=== PATIENT | female | born 1950 | race Caucasian/White ===

== ENCOUNTER 2017-03-10 11:02 | Inpatient (IN) | payer OTHER, MEDICARE ==
[2017-03-10] MEDS ORDERED: ALPRAZolam 0.25 MG Tab PO PRN (12:50)
[2017-03-10] MEDS: Acetaminophen/HYDROcodone 325-5 MG Tab PO PRN ×2 (13:57→20:55)
[2017-03-10] MEDS: rOPINIRole 2 MG Tab PO SCH ×3 (13:57→20:53)
[2017-03-10] MEDS: Dextran 70/Hypromellose/PF Ophth Soln 0.9 ML UD EYEBOTH SCH (20:53)
[2017-03-10] MEDS: hydrOXYzine HCl 25 MG Tab PO SCH (20:54)
[2017-03-10] MEDS: Calcium Carbonate/Vitamin D3 1250 MG-200 Unit Tab PO SCH (20:54)
[2017-03-10] MEDS: Formoterol/Mometasone 100-5 MCG 8.8 GM Inhaler IH SCH (20:54)
[2017-03-10] MEDS: Simvastatin 20 MG Tab PO SCH (20:55)
[2017-03-10] MEDS: Cyclobenzaprine 10 MG Tab PO SCH (20:55)
[2017-03-11] MEDS: Omeprazole 20 MG Cap.CR PO SCH ×2 (05:56→06:17)
[2017-03-11] MEDS: Formoterol/Mometasone 100-5 MCG 8.8 GM Inhaler IH SCH ×3 (05:56→21:05)
[2017-03-11] MEDS: Polyethylene Glycol 3350 Powder 17 GM Packet PO SCH (08:00)
[2017-03-11] MEDS: Cyclobenzaprine 10 MG Tab PO SCH ×3 (08:00→21:03)
[2017-03-11] MEDS: Citalopram 20 MG Tab PO SCH (08:00)
[2017-03-11] MEDS: hydrOXYzine HCl 25 MG Tab PO SCH ×3 (08:00→21:04)
[2017-03-11] MEDS: Calcium Carbonate/Vitamin D3 1250 MG-200 Unit Tab PO SCH ×2 (08:00→21:03)
[2017-03-11] MEDS ORDERED: TROSPIUM 60 MG PO SCH (08:00)
[2017-03-11] MEDS: Cholecalciferol (Vitamin D3) 1,000 Unit Tab PO SCH (08:00)
[2017-03-11] MEDS: rOPINIRole 2 MG Tab PO SCH ×3 (08:00→21:03)
[2017-03-11] MEDS: Aspirin 325 MG Tab.EC PO SCH (08:00)
[2017-03-11] MEDS: Magnesium Oxide 400 MG Tab PO SCH (08:00)
[2017-03-11] MEDS: Dextran 70/Hypromellose/PF Ophth Soln 0.9 ML UD EYEBOTH SCH ×2 (08:01→21:03)
[2017-03-11] MEDS: Acetaminophen/HYDROcodone 325-5 MG Tab PO PRN ×2 (08:03→21:04)
[2017-03-11] MEDS: Ferrous Sulfate 325 MG Tab PO SCH (08:03)
[2017-03-11] MEDS: Ondansetron 4 MG Tab.DIS PO PRN (08:03)
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
[2017-03-11] MEDS ORDERED: Magnesium Hydroxide 400 MG/5 ML Susp 30 ML Cup PO ONE (11:05)
[2017-03-11] MEDS: SANCTURA PO SCH (16:17)
[2017-03-11] MEDS: Simvastatin 20 MG Tab PO SCH (21:03)
[2017-03-12] MEDS: Formoterol/Mometasone 100-5 MCG 8.8 GM Inhaler IH SCH ×2 (06:03→20:49)
[2017-03-12] MEDS: Omeprazole 20 MG Cap.CR PO SCH (06:03)
[2017-03-12] MEDS: Aspirin 325 MG Tab.EC PO SCH (08:06)
[2017-03-12] MEDS: Calcium Carbonate/Vitamin D3 1250 MG-200 Unit Tab PO SCH ×2 (08:06→20:49)
[2017-03-12] MEDS: hydrOXYzine HCl 25 MG Tab PO SCH ×3 (08:06→20:49)
[2017-03-12] MEDS: Magnesium Oxide 400 MG Tab PO SCH (08:06)
[2017-03-12] MEDS: Citalopram 20 MG Tab PO SCH (08:06)
[2017-03-12] MEDS: rOPINIRole 2 MG Tab PO SCH ×3 (08:06→20:49)
[2017-03-12] MEDS: Cyclobenzaprine 10 MG Tab PO SCH ×3 (08:06→20:49)
[2017-03-12] MEDS: Cholecalciferol (Vitamin D3) 1,000 Unit Tab PO SCH (08:06)
[2017-03-12] MEDS: SANCTURA PO SCH (08:08)
[2017-03-12] MEDS: Polyethylene Glycol 3350 Powder 17 GM Packet PO SCH (08:08)
[2017-03-12] MEDS: Dextran 70/Hypromellose/PF Ophth Soln 0.9 ML UD EYEBOTH SCH ×2 (08:08→20:50)
[2017-03-12] MEDS ORDERED: Bisacodyl 10 MG Supp RECTAL ONE (09:38)
[2017-03-12] MEDS: Acetaminophen/HYDROcodone 325-5 MG Tab PO PRN ×2 (10:04→20:49)
[2017-03-12] MEDS ORDERED: Lactulose Soln 10 GM/15 ML 30 ML UD Cup PO PRN (12:05)
[2017-03-12] MEDS: Simvastatin 20 MG Tab PO SCH (20:49)
[2017-03-12] MEDS: Acetaminophen 325 MG Tab PO PRN (22:46)
[2017-03-13] MEDS: Acetaminophen/HYDROcodone 325-5 MG Tab PO PRN ×2 (04:56→20:30)
[2017-03-13] MEDS: Omeprazole 20 MG Cap.CR PO SCH (07:02)
[2017-03-13] MEDS: Formoterol/Mometasone 100-5 MCG 8.8 GM Inhaler IH SCH ×2 (07:03→20:30)
[2017-03-13] MEDS: Citalopram 20 MG Tab PO SCH (08:30)
[2017-03-13] MEDS: Cholecalciferol (Vitamin D3) 1,000 Unit Tab PO SCH (08:30)
[2017-03-13] MEDS: hydrOXYzine HCl 25 MG Tab PO SCH ×3 (08:30→20:30)
[2017-03-13] MEDS: Magnesium Oxide 400 MG Tab PO SCH (08:30)
[2017-03-13] MEDS: Aspirin 325 MG Tab.EC PO SCH (08:30)
[2017-03-13] MEDS: Cyclobenzaprine 10 MG Tab PO SCH ×3 (08:30→20:29)
[2017-03-13] MEDS: Calcium Carbonate/Vitamin D3 1250 MG-200 Unit Tab PO SCH ×2 (08:30→20:29)
[2017-03-13] MEDS: rOPINIRole 2 MG Tab PO SCH ×3 (08:30→20:34)
[2017-03-13] MEDS: Polyethylene Glycol 3350 Powder 17 GM Packet PO SCH (08:30)
[2017-03-13] MEDS: Dextran 70/Hypromellose/PF Ophth Soln 0.9 ML UD EYEBOTH SCH ×2 (08:31→20:30)
[2017-03-13] MEDS: SANCTURA PO SCH (08:31)
[2017-03-13] MEDS: Ferrous Sulfate 325 MG Tab PO SCH (08:35)
[2017-03-13] MEDS ORDERED: Albuterol 0.083% 2.5 MG/3 ML Neb Soln NEB ONE (11:45)
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
[2017-03-13] MEDS: Simvastatin 20 MG Tab PO SCH (20:29)
[2017-03-13] MEDS: Albuterol 0.083% 2.5 MG/3 ML Neb Soln INH PRN (20:31)
[2017-03-14] MEDS: Formoterol/Mometasone 100-5 MCG 8.8 GM Inhaler IH SCH ×2 (06:11→19:59)
[2017-03-14] MEDS: Acetaminophen/HYDROcodone 325-5 MG Tab PO PRN ×2 (06:11→20:02)
[2017-03-14] MEDS: Omeprazole 20 MG Cap.CR PO SCH (06:12)
[2017-03-14] MEDS: Polyethylene Glycol 3350 Powder 17 GM Packet PO SCH (07:58)
[2017-03-14] MEDS: Magnesium Oxide 400 MG Tab PO SCH (07:58)
[2017-03-14] MEDS: Citalopram 20 MG Tab PO SCH (07:58)
[2017-03-14] MEDS: hydrOXYzine HCl 25 MG Tab PO SCH ×3 (07:58→19:57)
[2017-03-14] MEDS: Dextran 70/Hypromellose/PF Ophth Soln 0.9 ML UD EYEBOTH SCH ×2 (07:58→19:59)
[2017-03-14] MEDS: Cyclobenzaprine 10 MG Tab PO SCH ×3 (07:58→19:58)
[2017-03-14] MEDS: Calcium Carbonate/Vitamin D3 1250 MG-200 Unit Tab PO SCH ×2 (07:58→19:57)
[2017-03-14] MEDS: Cholecalciferol (Vitamin D3) 1,000 Unit Tab PO SCH (07:58)
[2017-03-14] MEDS: Aspirin 325 MG Tab.EC PO SCH (07:58)
[2017-03-14] MEDS: SANCTURA PO SCH (07:59)
[2017-03-14] MEDS: rOPINIRole 2 MG Tab PO SCH ×3 (08:15→19:57)
[2017-03-14] MEDS: Albuterol 0.083% 2.5 MG/3 ML Neb Soln INH PRN (10:28)
[2017-03-14] MEDS: Simvastatin 20 MG Tab PO SCH (19:58)
[2017-03-15] MEDS: Acetaminophen/HYDROcodone 325-5 MG Tab PO PRN ×2 (05:57→20:15)
[2017-03-15] MEDS: Omeprazole 20 MG Cap.CR PO SCH ×2 (05:58→06:58)
[2017-03-15] MEDS: Formoterol/Mometasone 100-5 MCG 8.8 GM Inhaler IH SCH ×3 (05:58→20:18)
[2017-03-15] MEDS: Polyethylene Glycol 3350 Powder 17 GM Packet PO SCH (08:16)
[2017-03-15] MEDS: Cholecalciferol (Vitamin D3) 1,000 Unit Tab PO SCH (08:16)
[2017-03-15] MEDS: rOPINIRole 2 MG Tab PO SCH ×3 (08:16→20:17)
[2017-03-15] MEDS: Calcium Carbonate/Vitamin D3 1250 MG-200 Unit Tab PO SCH ×2 (08:17→20:17)
[2017-03-15] MEDS: Cyclobenzaprine 10 MG Tab PO SCH ×3 (08:17→20:17)
[2017-03-15] MEDS: Magnesium Oxide 400 MG Tab PO SCH (08:17)
[2017-03-15] MEDS: hydrOXYzine HCl 25 MG Tab PO SCH ×3 (08:17→20:17)
[2017-03-15] MEDS: Citalopram 20 MG Tab PO SCH (08:18)
[2017-03-15] MEDS: SANCTURA PO SCH (08:18)
[2017-03-15] MEDS: Aspirin 325 MG Tab.EC PO SCH (08:18)
[2017-03-15] MEDS: Dextran 70/Hypromellose/PF Ophth Soln 0.9 ML UD EYEBOTH SCH ×2 (08:19→20:19)
[2017-03-15] MEDS: Ferrous Sulfate 325 MG Tab PO SCH (08:22)
[2017-03-15] MEDS: Ondansetron 4 MG Tab.DIS PO PRN (09:44)
[2017-03-15] MEDS: Acetaminophen 325 MG Tab PO PRN (15:18)
[2017-03-15] MEDS: Simvastatin 20 MG Tab PO SCH (20:17)
[2017-03-16] MEDS: Albuterol 0.083% 2.5 MG/3 ML Neb Soln INH PRN ×3 (00:57→20:08)
[2017-03-16] MEDS: Acetaminophen/HYDROcodone 325-5 MG Tab PO PRN ×2 (05:27→23:01)
[2017-03-16] MEDS: Omeprazole 20 MG Cap.CR PO SCH (06:21)
[2017-03-16] MEDS: Formoterol/Mometasone 100-5 MCG 8.8 GM Inhaler IH SCH ×2 (06:21→19:55)
[2017-03-16] MEDS: Calcium Carbonate/Vitamin D3 1250 MG-200 Unit Tab PO SCH ×2 (07:58→19:57)
[2017-03-16] MEDS: Aspirin 325 MG Tab.EC PO SCH (07:58)
[2017-03-16] MEDS: Cyclobenzaprine 10 MG Tab PO SCH ×3 (07:58→19:57)
[2017-03-16] MEDS: hydrOXYzine HCl 25 MG Tab PO SCH ×3 (07:58→19:57)
[2017-03-16] MEDS: Cholecalciferol (Vitamin D3) 1,000 Unit Tab PO SCH (07:58)
[2017-03-16] MEDS: SANCTURA PO SCH (07:58)
[2017-03-16] MEDS: Citalopram 20 MG Tab PO SCH (07:58)
[2017-03-16] MEDS: rOPINIRole 2 MG Tab PO SCH ×3 (07:58→19:56)
[2017-03-16] MEDS: Magnesium Oxide 400 MG Tab PO SCH (07:58)
[2017-03-16] MEDS: Dextran 70/Hypromellose/PF Ophth Soln 0.9 ML UD EYEBOTH SCH ×2 (07:59→19:57)
[2017-03-16] MEDS: Acetaminophen 325 MG Tab PO PRN ×2 (08:02→15:10)
[2017-03-16] MEDS: Polyethylene Glycol 3350 Powder 17 GM Packet PO SCH (08:05)
[2017-03-16] MEDS: Sodium Chloride 0.65% Nasal Spray 45 ML Bottle NAS SCH ×4 (12:10→19:56)
[2017-03-16] MEDS: Simvastatin 20 MG Tab PO SCH (19:57)
[2017-03-17] MEDS: Albuterol 0.083% 2.5 MG/3 ML Neb Soln INH PRN ×2 (02:22→10:50)
[2017-03-17] MEDS: Omeprazole 20 MG Cap.CR PO SCH (06:23)
[2017-03-17] MEDS: Formoterol/Mometasone 100-5 MCG 8.8 GM Inhaler IH SCH ×2 (06:23→20:01)
[2017-03-17] MEDS: Cholecalciferol (Vitamin D3) 1,000 Unit Tab PO SCH (08:11)
[2017-03-17] MEDS: Cyclobenzaprine 10 MG Tab PO SCH ×3 (08:11→19:57)
[2017-03-17] MEDS: Magnesium Oxide 400 MG Tab PO SCH (08:11)
[2017-03-17] MEDS: Citalopram 20 MG Tab PO SCH (08:11)
[2017-03-17] MEDS: rOPINIRole 2 MG Tab PO SCH ×3 (08:12→19:59)
[2017-03-17] MEDS: Aspirin 325 MG Tab.EC PO SCH (08:12)
[2017-03-17] MEDS: hydrOXYzine HCl 25 MG Tab PO SCH ×3 (08:12→19:58)
[2017-03-17] MEDS: Calcium Carbonate/Vitamin D3 1250 MG-200 Unit Tab PO SCH ×2 (08:12→19:59)
[2017-03-17] MEDS: Polyethylene Glycol 3350 Powder 17 GM Packet PO SCH (08:12)
[2017-03-17] MEDS: Dextran 70/Hypromellose/PF Ophth Soln 0.9 ML UD EYEBOTH SCH ×2 (08:13→20:00)
[2017-03-17] MEDS: SANCTURA PO SCH (08:13)
[2017-03-17] MEDS: Sodium Chloride 0.65% Nasal Spray 45 ML Bottle NAS SCH ×4 (08:13→20:01)
[2017-03-17] MEDS: Ferrous Sulfate 325 MG Tab PO SCH (08:17)
[2017-03-17] MEDS: Acetaminophen 325 MG Tab PO PRN (14:58)
[2017-03-17] MEDS: Acetaminophen/HYDROcodone 325-5 MG Tab PO PRN ×2 (16:50→21:47)
[2017-03-17] MEDS: Simvastatin 20 MG Tab PO SCH (19:58)
[2017-03-18] MEDS: Albuterol 0.083% 2.5 MG/3 ML Neb Soln INH PRN ×2 (01:44→07:13)
[2017-03-18] MEDS: Ondansetron 4 MG Tab.DIS PO PRN ×2 (01:44→19:53)
[2017-03-18] MEDS: Omeprazole 20 MG Cap.CR PO SCH (06:28)
[2017-03-18] MEDS: Formoterol/Mometasone 100-5 MCG 8.8 GM Inhaler IH SCH ×2 (06:29→19:56)
[2017-03-18] MEDS: Calcium Carbonate/Vitamin D3 1250 MG-200 Unit Tab PO SCH ×2 (08:17→19:53)
[2017-03-18] MEDS: rOPINIRole 2 MG Tab PO SCH ×3 (08:18→20:06)
[2017-03-18] MEDS: Magnesium Oxide 400 MG Tab PO SCH (08:18)
[2017-03-18] MEDS: Citalopram 20 MG Tab PO SCH (08:18)
[2017-03-18] MEDS: Cholecalciferol (Vitamin D3) 1,000 Unit Tab PO SCH (08:18)
[2017-03-18] MEDS: Cyclobenzaprine 10 MG Tab PO SCH ×3 (08:18→19:53)
[2017-03-18] MEDS: hydrOXYzine HCl 25 MG Tab PO SCH ×3 (08:18→19:53)
[2017-03-18] MEDS: Aspirin 325 MG Tab.EC PO SCH (08:18)
[2017-03-18] MEDS: Dextran 70/Hypromellose/PF Ophth Soln 0.9 ML UD EYEBOTH SCH ×2 (08:19→19:52)
[2017-03-18] MEDS: Polyethylene Glycol 3350 Powder 17 GM Packet PO SCH (08:19)
[2017-03-18] MEDS: SANCTURA PO SCH (08:19)
[2017-03-18] MEDS: Sodium Chloride 0.65% Nasal Spray 45 ML Bottle NAS SCH ×4 (08:22→19:56)
[2017-03-18] MEDS: Acetaminophen/HYDROcodone 325-5 MG Tab PO PRN ×2 (09:04→19:53)
[2017-03-18] MEDS: Simvastatin 20 MG Tab PO SCH (19:53)
[2017-03-19 05:19] VITALS: BP 115/79
[2017-03-19] MEDS: Calcium Carbonate/Vitamin D3 1250 MG-200 Unit Tab PO SCH ×2 (05:58→07:36)
[2017-03-19] MEDS: Ondansetron 4 MG Tab.DIS PO PRN (05:58)
[2017-03-19] MEDS: Dextran 70/Hypromellose/PF Ophth Soln 0.9 ML UD EYEBOTH SCH ×2 (05:58→07:40)
[2017-03-19] MEDS: Omeprazole 20 MG Cap.CR PO SCH (05:59)
[2017-03-19] MEDS: Acetaminophen/HYDROcodone 325-5 MG Tab PO PRN (05:59)
[2017-03-19] MEDS: rOPINIRole 2 MG Tab PO SCH ×3 (05:59→15:15)
[2017-03-19] MEDS: Magnesium Oxide 400 MG Tab PO SCH ×2 (05:59→07:38)
[2017-03-19] MEDS: Ferrous Sulfate 325 MG Tab PO SCH ×2 (05:59→07:36)
[2017-03-19] MEDS: Aspirin 325 MG Tab.EC PO SCH ×2 (06:00→07:36)
[2017-03-19] MEDS: hydrOXYzine HCl 25 MG Tab PO SCH ×3 (06:00→13:56)
[2017-03-19] MEDS: Cholecalciferol (Vitamin D3) 1,000 Unit Tab PO SCH ×2 (06:00→07:40)
[2017-03-19] MEDS: Cyclobenzaprine 10 MG Tab PO SCH ×3 (06:00→13:56)
[2017-03-19] MEDS: Citalopram 20 MG Tab PO SCH ×2 (06:00→07:36)
[2017-03-19] MEDS: Albuterol 0.083% 2.5 MG/3 ML Neb Soln INH PRN ×2 (06:01→15:15)
[2017-03-19] MEDS: Polyethylene Glycol 3350 Powder 17 GM Packet PO SCH ×2 (06:01→07:38)
[2017-03-19] MEDS: Formoterol/Mometasone 100-5 MCG 8.8 GM Inhaler IH SCH (06:02)
[2017-03-19] MEDS: Sodium Chloride 0.65% Nasal Spray 45 ML Bottle NAS SCH ×3 (06:02→13:56)
[2017-03-19] MEDS: SANCTURA PO SCH ×2 (06:03→07:40)
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
== END 2017-03-19 18:05 | disposition home or self-care (01) | DRG 561 ==
LOC: VM.MS 11:34
PROVIDERS: ADMIT Internal Medicine; ATTEND Internal Medicine
DX: S52.201D Unspecified fracture of shaft of right ulna, subsequent encounter for closed fracture with routine healing (principal); S42.302D Unspecified fracture of shaft of humerus, left arm, subsequent encounter for fracture with routine healing; V89.2XXD Person injured in unspecified motor-vehicle accident, traffic, subsequent encounter; G25.81 Restless legs syndrome; D64.9 Anemia, unspecified; I10 Essential (primary) hypertension; F32.9 Major depressive disorder, single episode, unspecified; J45.909 Unspecified asthma, uncomplicated; N39.46 Mixed incontinence; K59.00 Constipation, unspecified; K21.9 Gastro-esophageal reflux disease without esophagitis; E66.9 Obesity, unspecified; R05 Cough
CPT/HCPCS: 71020; 94640-76; 97110-GO; 97110-GP; 97116-GP; 97161-GP; 97165-GO; A9270-GY; G0283-GP; J7620-GY